=== PATIENT | male | born 1985 | race Two or more races ===

== ENCOUNTER 2021-05-20 17:15 | Emergency (ER) | payer MEDICAID, OTHER ==
[~2021-05-20] VITALS: Ht 170.2 cm; Wt 68.0 kg
[2021-05-20 18:57] VITALS: BP 117/80
[2021-05-20] MEDS ORDERED: IBUPROFEN 800 MG TAB PO ONE (20:00)
== END 2021-05-20 20:40 | disposition home or self-care (01) ==
LOC: ER 17:15
DX: S46.912A Strain of unspecified muscle, fascia and tendon at shoulder and upper arm level, left arm, initial encounter (principal); V43.52XA Car driver injured in collision with other type car in traffic accident, initial encounter; Y93.89 Activity, other specified; Y92.89 Other specified places as the place of occurrence of the external cause; Y99.8 Other external cause status
CPT/HCPCS: 73030

== ENCOUNTER 2023-07-03 13:08 | Emergency (ER) | payer MEDICAID ==
[~2023-07-03] VITALS: Ht 170.2 cm; Wt 68.8 kg
[2023-07-03 13:40] VITALS: BP 119/57; PULSE 85; RESP 17; TEMP 98.3; O2SAT 96
[2023-07-03] MEDS ORDERED: SODIUM CHLORIDE 0.9% 250 ML IV ONE (14:30)
[2023-07-03] MEDS ORDERED: VANCOMYCIN PER PHARMACY 0 MG IV SCH (14:30)
[2023-07-03] MEDS ORDERED: HYDROcodone-ACET 10/325MG TAB PO ONE (14:30)
[2023-07-03] MEDS ORDERED: AMPICILLIN & SULBACTAM SODIUM 3 GM in SODIUM CHL 0.9% 100 ML IV SCH (14:30)
[2023-07-03] MEDS ORDERED: VANCOMYCIN 1GM/250ML 250 ML IV ONE (15:45)
[2023-07-03] MEDS ORDERED: PENI500T2 PO (17:45)
[2023-07-03] MEDS ORDERED: diphenhdrAMINE HCL 50 MG/1 ML VL IV ONE (18:45)
[2023-07-03] MEDS ORDERED: KETOROLAC TROMETH 30 MG/ML 1ML VIAL IV ONE (18:45)
[2023-07-03] MEDS ORDERED: DexAMETHasone SOD PHOS 10MG/1ML VIAL INJ IV ONE (18:45)
== END 2023-07-03 19:09 | disposition home or self-care (01) ==
LOC: ER 13:08
DX: K04.7 Periapical abscess without sinus (principal)
CPT/HCPCS: 96365; 96367; 96375; 99284; J1100; J1200; J1885; J3370; J7050

== ENCOUNTER 2024-04-18 16:06 | Emergency (ER) | payer MEDICAID ==
[~2024-04-18 16:06] MED LIST: PENI500T2 PO
[2024-04-18] MEDS ORDERED: SODIUM CHLORIDE 0.9% 1,000 ML IV ONE (16:15)
[2024-04-18] MEDS ORDERED: DIPH25CA66 PO (22:52)
== END 2024-04-18 16:23 | disposition left against medical advice (07) ==
LOC: ER 16:06
DX: R06.2 Wheezing (principal); Z53.21 Procedure and treatment not carried out due to patient leaving prior to being seen by health care provider
CPT/HCPCS: 36600; 82805

== ENCOUNTER 2024-04-18 17:48 | Emergency (ER) | payer MEDICAID ==
[2024-04-18] MEDS ORDERED: DIPH25CA66 PO (22:52)
[2024-04-18 23:19] VITALS: BP 115/72; PULSE 62; RESP 18; TEMP 97.5; O2SAT 98
== END 2024-04-18 23:30 | disposition home or self-care (01) ==
LOC: EDBD 17:48 → ER 17:48
DX: T78.49XA Other allergy, initial encounter (principal); Z79.899 Other long term (current) drug therapy; X58.XXXA Exposure to other specified factors, initial encounter